=== PATIENT | male | born 1960 | race Two or more races ===

== ENCOUNTER 2016-03-23 23:31 | Emergency (ER) | payer SELFPAY ==
[~2016-03-23] VITALS: Ht 175.3 cm; Wt 97.5 kg
[2016-03-24 00:11] VITALS: BP 184/121
== END 2016-03-24 04:14 | disposition left against medical advice (07) ==
LOC: ER 23:34
DX: M25.572 Pain in left ankle and joints of left foot (principal); S80.812A Abrasion, left lower leg, initial encounter; Z53.21 Procedure and treatment not carried out due to patient leaving prior to being seen by health care provider; W22.8XXA Striking against or struck by other objects, initial encounter; Y93.89 Activity, other specified; Y99.9 Unspecified external cause status; Y92.89 Other specified places as the place of occurrence of the external cause
CPT/HCPCS: 73590; 73610

== ENCOUNTER 2016-03-24 08:20 | Emergency (ER) | payer SELFPAY ==
[~2016-03-24] VITALS: Ht 175.3 cm; Wt 104.3 kg
[2016-03-24 08:35] VITALS: BP 148/106
== END 2016-03-24 10:52 | disposition home or self-care (01) ==
LOC: ER 08:24
DX: S96.912A Strain of unspecified muscle and tendon at ankle and foot level, left foot, initial encounter (principal); W22.8XXA Striking against or struck by other objects, initial encounter; Y93.89 Activity, other specified; Y99.9 Unspecified external cause status; Y92.89 Other specified places as the place of occurrence of the external cause
CPT/HCPCS: 29515; 73630